=== PATIENT | female | born 1955 | race American Indian/Alaskan Native ===

== ENCOUNTER 2021-03-21 13:05 | Outpatient (CLI) | payer OTHER ==
--- NOTE | 2021-03-22 15:29 | Mammography Report ---
DIGITAL SCREENING MAMMOGRAM WITH CAD, 03/21/2021 CLINICAL INFORMATION / INDICATION: Routine screening mammography. SCREENING MAMMOGRAM TECHNIQUE: Digital bilateral 2D mammography was obtained in the craniocaudal and mediolateral obliqu e projections. This examination was interpreted with the benefit of Computer-Aided Detection analysis . COMPARISON: 11/27/2018 FINDINGS: Breast Density: There are scattered areas of fibroglandular density. No dominant mass, suspicious calcifications, or architectural distortion in either breast. IMPRESSION: No mammographic evidence of malignancy. Follow up recommendation: Routine yearly BI-RADS Category 1: Negative. A "normal" or negative report should not discourage follow up or biopsy of a clinically significant f inding. A written summary of these findings will be mailed to the patient. The patient will be entered into a mammography reporting system which will generate a reminder letter for the patient's next appointmen t at the appropriate interval. The [employer] recommends yearly mammograms starting at age 40 and continuing as l sukumar as a woman is in good health. Breast MRI is recommended for women with an approximate 20-25% or greater lifetime risk of breast cancer, including women with a strong family history of breast or ova cheng cancer or who have been treated for Hodgkin's disease. Signer Name: Toi Walker MD Signed: 03/22/2021 3:25 PM Workstation Name: [id number]
== END 2021-03-21 13:06 | disposition home or self-care (01) ==
LOC: MAMMO 13:05
PROVIDERS: ATTEND Pediatrics
DX: Z12.31 Encounter for screening mammogram for malignant neoplasm of breast (principal); N64.89 Other specified disorders of breast
CPT/HCPCS: 77067

== ENCOUNTER 2021-07-08 18:16 | Emergency (ER) | payer OTHER ==
--- NOTE | 2021-07-08 19:09 | Emergency Department Report ---
ED General Adult HPI - General Chief complaint: Chest Pain Stated complaint: CHEST PAIN PUI?: No Time Seen by Provider: 07/08/21 18:26 Source: patient, RN notes reviewed Mode of arrival: Ambulatory Limitations: No Limitations - History of Present Illness Initial comments: The patient was evaluated in the emergency department for symptoms described in the history of present illness. He/she was evaluated in the context of the global COVID-19 pandemic, which necessitated consideration that the patient might be at risk for infection with the virus that causes COVID-19. Institutional protocols and algorithms that pertain to the evaluation of patients at risk for COVID-19 are in a state of rapid change based on information released by regulatory bodies including the CDC and federal and state organizations. These policies and algorithms were followed during the patient's care in the emergency department. Please note that these policies, procedures and recommendations changed on a rapid basis. During the history and physical examination I am chaperoned by JULI SOOD The patient is a 66-year-old female with a history of sinus disease, and hypertension. She presents to the ER today with a complaint of intermittent central left-sided chest pain associate with left upper extremity numbness since May. It is getting worse. She reports that this episode started this morning, and resolve spontaneously. She then had another episode earlier on this evening. No recent travel, surgery, immobilization, leg pain or leg swelling, DVT/PE risk factors. No recent aspirin consumption. No recent cardiac risk ratification. She denies additional injuries and complaints at this time. -: Sudden Location: chest Radiation: extremity Quality: aching Consistency: intermittent Improves with: none Worsens with: none - Related Data Previous Rx's Medication Instructions Recorded Last Taken Type Aspirin 325 mg PO QDAY #30 tablet 07/08/21 Unknown Rx Nitroglycerin (Nf) [Nitrostat] 0.3 mg SL PRN PRN #30 tab 07/08/21 Unknown Rx Allergies Allergy/AdvReac Type Severity Reaction Status Date / Time No Known Allergies Allergy Unverified 07/08/21 18:24 ED Review of Systems ROS: Stated complaint: CHEST PAIN Other details as noted in HPI Constitutional: denies: fever Eyes: denies: eye discharge ENT: denies: epistaxis Respiratory: denies: wheezing Cardiovascular: chest pain Gastrointestinal: denies: abdominal pain Musculoskeletal: denies: back pain Neurological: denies: weakness Hematological/Lymphatic: denies: easy bleeding ED Past Medical Hx - Medications Home Medications: Home Medications Medication Instructions Recorded Confirmed Last Taken Type Aspirin 325 mg PO QDAY #30 tablet 07/08/21 Unknown Rx Nitroglycerin (Nf) [Nitrostat] 0.3 mg SL PRN PRN #30 tab 07/08/21 Unknown Rx ED Physical Exam - General Limitations: No Limitations General appearance: alert, in no apparent distress - Head Head exam: Present: atraumatic, normocephalic - Eye Eye exam: Present: normal appearance, EOMI. Absent: nystagmus - ENT ENT exam: Present: normal exam, normal orophraynx, mucous membranes moist, normal external ear exam - Neck Neck exam: Present: normal inspection, full ROM. Absent: tenderness, meningismus - Respiratory Respiratory exam: Present: normal lung sounds bilaterally. Absent: respiratory distress, wheezes, rales, rhonchi, stridor, decreased breath sounds - Cardiovascular Cardiovascular Exam: Present: regular rate, normal rhythm, normal heart sounds. Absent: bradycardia, tachycardia, irregular rhythm, systolic murmur, diastolic murmur, rubs, gallop - GI/Abdominal GI/Abdominal exam: Present: soft. Absent: distended, tenderness, guarding, rebound, rigid, pulsatile mass - Extremities Exam Extremities exam: Present: normal inspection, full ROM, other (2+ pulses noted in the bilateral upper and lower extremities. There is no palpable cord. negative Homans sign. Muscular compartments are soft. The pelvis is stable.). Absent: pedal edema, calf tenderness - Back Exam Back exam: Present: normal inspection, full ROM. Absent: tenderness, CVA tenderness (R), CVA tenderness (L), paraspinal tenderness, vertebral tenderness - Neurological Exam Neurological exam: Present: alert, oriented X3, normal gait, other (No facial droop. Tongue midline. Extraocular movements intact bilaterally. Facial sensation intact to light touch in V1, V2, V3 distribution bilaterally. 5 and a 5 strength in 4 extremities. Sensation intact to light touch in 4 extremities.). Absent: motor sensory deficit - Psychiatric Psychiatric exam: Present: normal affect, normal mood - Skin Skin exam: Present: warm, dry, intact, normal color. Absent: rash ED Medical Decision Making - EKG Data -: EKG Interpreted by Me EKG shows normal: sinus rhythm Rate: normal - EKG Data When compared to previous EKG there are: previous EKG unavailable 07/08/21 19:07 The EKG is interpreted at 18: 33 Sinus rhythm, rate 71 bpm. Normal axis, normal intervals, nonspecific T wave abnormalities V2 and V3. This is an abnormal EKG. This is not a STEMI. - Medical Decision Making Differential diagnosis, including without limited to: GERD, gastritis, hiatal hernia, pneumonia, acute coronary syndrome Assessment and plan: 66-year-old female, with chest pain. Her EKG is abnormal and nonspecific. Have recommended admission to the medical service with cardiac risk ratification, including labs, x-ray the chest, and cardiac monitoring, and administration of appropriate analgesia. The patient presents as awake, alert, oriented, sober of sound mind, and exhibits decision-making capacity. She indicated that she had "some things to take care of", and indicated that she would sign out AGAINST MEDICAL ADVICE and return when she took care of her obligations. The risks of leaving, including , disability, paralysis, loss of quality of life are discussed with the patient, who verbalizes understanding with her own words, and exhibits decision-making capacity. This conversation was witnessed by JULI SOOD The patient is advised to return to the emergency room right away if and when she changes her mind. The patient left without receiving her discharge paperwork Critical care attestation.: If time is entered above; I have spent that time in minutes in the direct care of this critically ill patient, excluding procedure time. ED Disposition Clinical Impression: Acute chest pain Disposition: LEFT AGAINST MEDICAL ADVICE Is pt being admited?: No Does the pt Need Aspirin: No Condition: Undetermined Instructions: Chest Pain (ED) Additional Instructions: As we discussed, you have left the hospital/emergency room AGAINST MEDICAL ADVICE. By leaving, you risked , disability, paralysis, permanent loss of quality of life. The ER is open 24 hours a day, 7 days a week. It never closes. Please return to the emergency room right away if and when you change your mind. If you decide not to return to the emergency room, please follow-up with the listed physician referrals as soon as possible. Referrals: [facility] [Provider Group] - [facility] [Provider Group] - [facility]
--- NOTE | 2021-07-10 13:17 | Electrocardiograph Report ---
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
== END 2021-07-08 18:30 | disposition left against medical advice (07) ==
LOC: ED 18:16
DX: R07.9 Chest pain, unspecified (principal)
CPT/HCPCS: 93005; 99282

== ENCOUNTER 2021-07-08 21:29 | Observation (INO) | payer OTHER ==
[2021-07-08] MEDS ORDERED: NITROGLYCERIN 0.4 MG TAB SUBL SL ONE ×2 (21:51→23:59)
[2021-07-08] MEDS ORDERED: ASPIRIN 81 MG TAB CHEW PO ONE ×2 (21:51→23:59)
[2021-07-08] MEDS ORDERED: PANTOPRAZOLE 40 MG INJ IV ONE ×2 (21:52→23:59)
--- NOTE | 2021-07-08 21:53 | Emergency Department Report ---
ED General Adult HPI - General Chief complaint: Chest Pain Stated complaint: CHEST PAIN PUI?: No Time Seen by Provider: 07/08/21 21:51 Source: patient, RN notes reviewed, old records reviewed Mode of arrival: Stretcher Limitations: No Limitations - History of Present Illness Initial comments: The patient was evaluated in the emergency department for symptoms described in the history of present illness. He/she was evaluated in the context of the global COVID-19 pandemic, which necessitated consideration that the patient migh t be at risk for infection with the virus that causes COVID-19. Institutional protocols and algorithms that pertain to the evaluation of patients at risk for COVID-19 are in a state of rapid change based on information released by regulatory bodies including the CDC and federal and state organizations. These policies and algorithms were followed during the patient's care in the emergency department. Please note that these policies, procedures and recommendations changed on a rapid basis. The patient is a 66-year-old female. I saw her earlier on today for chest pain. She signed out AGAINST MEDICAL ADVICE to take care of some obligations at home. She now presents to the ER today with a request for admission for cardiac or stratification. Please see her previous chart. The patient denies DVT/PE risk factors. She is still having a bit of pain. -: Gradual Location: chest - Related Data Previous Rx's Medication Instructions Recorded Last Taken Type Aspirin 325 mg PO QDAY #30 tablet 07/08/21 Unknown Rx Nitroglycerin (Nf) [Nitrostat] 0.3 mg SL PRN PRN #30 tab 07/08/21 Unknown Rx Allergies Allergy/AdvReac Type Severity Reaction Status Date / Time No Known Allergies Allergy Unverified 07/08/21 18:24 ED Review of Systems ROS: Stated complaint: CHEST PAIN Other details as noted in HPI Constitutional: denies: fever Eyes: denies: eye discharge ENT: denies: epistaxis Respiratory: denies: cough Cardiovascular: chest pain Gastrointestinal: denies: abdominal pain Neurological: denies: weakness Hematological/Lymphatic: denies: easy bleeding ED Past Medical Hx - Medications Home Medications: Home Medications Medication Instructions Recorded Confirmed Last Taken Type Aspirin 325 mg PO QDAY #30 tablet 07/08/21 Unknown Rx Nitroglycerin (Nf) [Nitrostat] 0.3 mg SL PRN PRN #30 tab 07/08/21 Unknown Rx ED Physical Exam - General Limitations: No Limitations General appearance: alert, in no apparent distress - Head Head exam: Present: atraumatic, normocephalic - Eye Eye exam: Present: normal appearance, EOMI. Absent: nystagmus - ENT ENT exam: Present: normal exam, normal orophraynx, mucous membranes moist, normal external ear exam - Neck Neck exam: Present: normal inspection, full ROM. Absent: tenderness, meningismus - Respiratory Respiratory exam: Absent: stridor - Extremities Exam Extremities exam: Present: normal inspection, full ROM - Back Exam Back exam: Present: normal inspection, full ROM - Neurological Exam Neurological exam: Present: alert, oriented X3, normal gait, other (No facial droop. Tongue midline. Extraocular movements intact bilaterally. Facial sensation intact to light touch in V1, V2, V3 distribution bilaterally. 5 and a 5 strength in 4 extremities. Sensation intact to light touch in 4 extremities.) - Psychiatric Psychiatric exam: Present: normal affect, normal mood - Skin Skin exam: Present: warm, dry, intact, normal color. Absent: rash ED Course Vital Signs 07/08/21 23:18 Temperature 98 F Pulse Rate 63 Respiratory 18 Rate Blood Pressure 130/72 O2 Sat by Pulse 100 Oximetry - Reevaluation(s) Reevaluation #1: 07/08/21 22:35 Differential diagnosis, including but not limited to: GERD, gastritis, hiatal hernia, pneumonia, costochondritis, acute coronary syndrome Assessment and plan: 66-year-old female, who denies DVT and pulmonary embolism risk factors, who is low risk by Wells criteria for pulmonary embolism, who is not tachycardic, tachypneic or hypoxic, with no mediastinal shift or widening, normal pulses in upper lower extremities, no pulsatile abdominal mass, with acute chest pain, this is very unlikely to be aortic disease. Patient moderate risk for major adverse cardiac event as per heart score. Patient is agreeable to admission and hospitalization for cardiac risk ratification. X-ray the chest to my interpretation is unremarkable. Appropriate laboratory studies ordered. Hospital physician will be contacted to arrange admission once initial diagnostics have resulted. Patient is agreeable to this plan of care. 07/08/21 23:44 Dr Swanson to admit to [facility] Laboratory studies reviewed and appreciated. Patient has mild hypokalemia. Potassium supplementation ordered Discussed results with patient She articulates understanding ED Medical Decision Making - Lab Data Result diagrams: 07/08/21 22:29 07/08/21 22:29 Lab Results 07/08/21 Range/Units 22:29 WBC 5.6 (4.5-11.0) K/mm3 RBC 4.93 (3.65-5.03) M/mm3 Hgb 13.4 (10.1-14.3) gm/dl Hct 40.3 (30.3-42.9) % MCV 82 (79-97) fl MCH 27 L (28-32) pg MCHC 33 (30-34) % RDW 13.6 (13.2-15.2) % Plt Count 399 (140-440) K/mm3 Lymph % (Auto) 42.0 H (13.4-35.0) % [place] % (Auto) 7.4 H (0.0-7.3) % Eos % (Auto) 2.4 (0.0-4.3) % Baso % (Auto) 0.6 (0.0-1.8) % Lymph # (Auto) 2.3 (1.2-5.4) K/mm3 [place] # (Auto) 0.4 (0.0-0.8) K/mm3 Eos # (Auto) 0.1 (0.0-0.4) K/mm3 Baso # (Auto) 0.0 (0.0-0.1) K/mm3 Seg Neutrophils % 47.6 (40.0-70.0) % Seg Neutrophils # 2.7 (1.8-7.7) K/mm3 Lab Results 07/08/21 07/08/21 07/08/21 Range/Units 22:29 22:29 22:29 WBC 5.6 (4.5-11.0) K/mm3 RBC 4.93 (3.65-5.03) M/mm3 Hgb 13.4 (10.1-14.3) gm/dl Hct 40.3 (30.3-42.9) % MCV 82 (79-97) fl MCH 27 L (28-32) pg MCHC 33 (30-34) % RDW 13.6 (13.2-15.2) % Plt Count 399 (140-440) K/mm3 Lymph % (Auto) 42.0 H (13.4-35.0) % [place] % (Auto) 7.4 H (0.0-7.3) % Eos % (Auto) 2.4 (0.0-4.3) % Baso % (Auto) 0.6 (0.0-1.8) % Lymph # (Auto) 2.3 (1.2-5.4) K/mm3 [place] # (Auto) 0.4 (0.0-0.8) K/mm3 Eos # (Auto) 0.1 (0.0-0.4) K/mm3 Baso # (Auto) 0.0 (0.0-0.1) K/mm3 Seg Neutrophils % 47.6 (40.0-70.0) % Seg Neutrophils # 2.7 (1.8-7.7) K/mm3 PT 12.2 (12.2-14.9) Sec. INR 0.81 L (0.87-1.13) Sodium 143 (137-145) mmol/L Potassium 3.0 L (3.6-5.0) mmol/L Chloride 101.7 (98-107) mmol/L Carbon Dioxide 29 (22-30) mmol/L Anion Gap 15 mmol/L BUN 10 (7-17) mg/dL Creatinine 0.7 (0.6-1.2) mg/dL Estimated GFR > 60 ml/min BUN/Creatinine Ratio 14 % Glucose 99 (65-100) mg/dL Calcium 9.4 (8.4-10.2) mg/dL Troponin T < 0.010 (0.00-0.029) ng/mL Vital Signs 07/08/21 23:18 Temperature 98 F Pulse Rate 63 Respiratory 18 Rate Blood Pressure 130/72 O2 Sat by Pulse 100 Oximetry - EKG Data -: EKG Interpreted by Me EKG shows normal: sinus rhythm - EKG Data Interpretation: unchanged when compared t 07/08/21 22:34 The EKG today is interpreted at 22: 03 Sinus rhythm, rate 64 bpm. Normal axis, normal intervals, nonspecific T wave abnormalities. Minimal motion artifact. Abnormal EKG. Not a STEMI. Unchanged from prior EKG. - Radiology Data Radiology results: report reviewed, image reviewed interpreted by me: 2 view x-ray of the chest, interpreted by myself, demonstrates clear lungs, no infiltrate, no pneumothorax, uncoiled aorta CHEST 2 VIEWS INDICATION / CLINICAL INFORMATION: Chest Pain. COMPARISON: None available. FINDINGS: SUPPORT DEVICES: None. HEART / MEDIASTINUM: No significant abnormality. LUNGS / PLEURA: No significant pulmonary or pleural abnormality. No pneumothorax. ADDITIONAL FINDINGS: No significant additional findings. IMPRESSION: 1. No active cardiopulmonary disease. Signer Name: Marino Lei II, MD Signed: 07/08/2021 9:28 PM Workstation Name: [id number] Critical care attestation.: If time is entered above; I have spent that time in minutes in the direct care of this critically ill patient, excluding procedure time. ED Disposition Clinical Impression: Acute chest pain, Hypokalemia Disposition: ADMITTED INPATIENT Is pt being admited?: Yes Does the pt Need Aspirin: No Condition: Good Instructions: Chest Pain (ED) Referrals: YAQUELIN CAMPBELL APRN-BC [Primary Care Provider] - 3-5 Days Heart Score - HEART Score History: Moderately suspicious EKG: Non-specific Age: > 65 Risk factors: 1-2 risk factors Troponin: < normal limit HEART Score: 5 - EKG Read Time Time EKG Completed: 22:03 EKG Read Time: 22:03 - Critical Actions Critical Actions: 4-6 pts:12-16.6% risk of adverse cardiac event. Should be admitted
--- NOTE | 2021-07-08 22:32 | XRay Report ---
CHEST 2 VIEWS INDICATION / CLINICAL INFORMATION: Chest Pain. COMPARISON: None available. FINDINGS: SUPPORT DEVICES: None. HEART / MEDIASTINUM: No significant abnormality. LUNGS / PLEURA: No significant pulmonary or pleural abnormality. No pneumothorax. ADDITIONAL FINDINGS: No significant additional findings. IMPRESSION: 1. No active cardiopulmonary disease. Signer Name: Marino Lei II, MD Signed: 07/08/2021 10:28 PM Workstation Name: [id number]
[2021-07-08 22:59] LABS: Basophils % (Auto) 0.6 % (0.0-1.8); Eosinophils # (Auto) 0.1 K/mm3 (0.0-0.4); Eosinophils % (Auto) 2.4 % (0.0-4.3); Hematocrit 40.3 % (30.3-42.9); Hemoglobin 13.4 gm/dl (10.1-14.3); Lymphocytes # (Auto) 2.3 K/mm3 (1.2-5.4); Mean Corpuscular HGB Conc 33 % (30-34); Mean Corpuscular Volume 82 fl (79-97); Monocytes # (Auto) 0.4 K/mm3 (0.0-0.8); Monocytes % (Auto) 7.4 % (0.0-7.3); Platelet Count 399 K/mm3 (140-440); Red Blood Count 4.93 M/mm3 (3.65-5.03); Red Cell Distribution Width 13.6 % (13.2-15.2)
[2021-07-08 23:13] LABS: INR 0.81 (0.87-1.13)
[2021-07-08 23:17] LABS: Blood Urea Nitrogen 10 mg/dL (7-17); Calcium 9.4 mg/dL (8.4-10.2); Hemolysis Index 4
[2021-07-08 23:22] LABS: BUN/Creatinine Ratio 14
[2021-07-08] MEDS ORDERED: POTASSIUM CHLORIDE ER 20 MEQ TAB PO ONE (23:31)
[2021-07-08] MEDS ORDERED: MAGNESIUM OXIDE 400 MG TAB PO STA (23:31)
[2021-07-09] MEDS ORDERED: MORPHINE 4 MG/1 ML INJ IV PRN (01:21)
[2021-07-09] MEDS ORDERED: ACETAMINOPHEN 325 MG TAB PO PRN (01:21)
[2021-07-09] MEDS ORDERED: NITROGLYCERIN 0.4 MG TAB SUBL SL PRN (01:21)
[2021-07-09] MEDS ORDERED: traMADol 50 MG TAB PO PRN (01:21)
--- NOTE | 2021-07-09 01:29 | History and Physical Report ---
History of Present Illness Date of examination: 07/09/21 Date of admission: 07/09/21 Chief complaint: Chest pain History of present illness: 66-year-old female with a history of sinus disease, and hypertension was brought to the emergency room because of intermittent central left-sided chest pain associate with left upper extremity numbness since May. It is getting worse. As per the patient chest pain started this morning, and resolve spontaneously. She then had another episode earlier on this evening. In the emergency room initial cardiac enzyme is negative troponin is 0.010 and potassium 3.0's were going to admit the patient we will put the patient on chest pain pathway we do the serial cardiac enzymes we will also do a Lexiscan Past History Past Medical History: hyperlipidemia, other (Sinus disease) Social history: other (No smoking) Medications and Allergies Allergies Allergy/AdvReac Type Severity Reaction Status Date / Time No Known Allergies Allergy Verified 07/08/21 23:56 Home Medications Medication Instructions Recorded Confirmed Last Taken Type Aspirin 325 mg PO QDAY #30 tablet 07/08/21 Unknown Rx Nitroglycerin (Nf) [Nitrostat] 0.3 mg SL PRN PRN #30 tab 07/08/21 Unknown Rx Active Meds: Active Medications Nitroglycerin (Nitroglycerin 0.4 Mg Tab Subl) 0.4 mg SL Q5M ONE Stop: 07/08/21 23:59 Review of Systems Cardiovascular: chest pain, shortness of breath Exam - Constitutional Vitals: Temp Pulse Resp BP Pulse Ox 98 F 86 16 115/54 98 07/08/21 23:18 07/09/21 00:35 07/09/21 00:35 07/09/21 00:35 07/09/21 00:37 General appearance: Present: no acute distress, well-nourished - EENT Eyes: Present: PERRL ENT: hearing intact, clear oral mucosa - Neck Neck: Present: supple, normal ROM - Respiratory Respiratory effort: normal Respiratory: bilateral: diminished - Cardiovascular Heart Sounds: Present: S1 & S2. Absent: rub, click - Extremities Extremities: pulses symmetrical, No edema Peripheral Pulses: within normal limits - Abdominal General gastrointestinal: Present: soft, non-tender, non-distended, normal bowel sounds Female genitourinary: Present: normal - Integumentary Integumentary: Present: clear, warm, dry - Musculoskeletal Musculoskeletal: gait normal, strength equal bilaterally - Psychiatric Psychiatric: appropriate mood/affect, intact judgment & insight - Neurologic Neurologic: CNII-XII intact, moves all extremities HEART Score - HEART Score EKG: Non-specific Age: > 65 Risk factors: 1-2 risk factors Troponin: Troponin T < 0.010 ng/mL (0.00-0.029) 07/09/21 00:40 Troponin: < normal limit - Critical Actions Critical Actions: 4-6 pts:12-16.6% risk of adverse cardiac event. Should be admitted Results - Labs CBC & Chem 7: 07/08/21 22:29 07/08/21: Labs: Laboratory Last Values WBC 5.6 K/mm3 (4.5-11.0) 07/08/21: RBC 4.93 M/mm3 (3.65-5.03) 07/08/21: Hgb 13.4 gm/dl (10.1-14.3) 07/08/21: Hct 40.3 % (30.3-42.9) 07/08/21: MCV 82 fl (79-97) 07/08/21: MCH 27 pg (28-32) L 07/08/21: MCHC 33 % (30-34) 07/08/21: RDW 13.6 % (13.2-15.2) 07/08/21: Plt Count 399 K/mm3 (140-440) 07/08/21: Lymph % (Auto) 42.0 % (13.4-35.0) H 07/08/21: [place] % (Auto) 7.4 % (0.0-7.3) H 07/08/21: Eos % (Auto) 2.4 % (0.0-4.3) 07/08/21: Baso % (Auto) 0.6 % (0.0-1.8) 07/08/21: Lymph # (Auto) 2.3 K/mm3 (1.2-5.4) 07/08/21: [place] # (Auto) 0.4 K/mm3 (0.0-0.8) 07/08/21 Eos # (Auto) 0.1 K/mm3 (0.0-0.4) 07/08/21 22:29 Baso # (Auto) 0.0 K/mm3 (0.0-0.1) 07/08/21 22:29 Seg Neutrophils % 47.6 % (40.0-70.0) 07/08/21 22:29 Seg Neutrophils # 2.7 K/mm3 (1.8-7.7) 07/08/21: PT 12.2 Sec. (12.2-14.9) 07/08/21 22:29 INR 0.81 (0.87-1.13) L 07/08/21 22:29 Sodium 143 mmol/L (137-145) 07/08/21: Potassium 3.0 mmol/L (3.6-5.0) L 07/08/21: Chloride 101.7 mmol/L (98-107) 07/08/21 22: Carbon Dioxide 29 mmol/L (22-30) 07/08/21: Anion Gap 15 mmol/L 07/08/21: BUN 10 mg/dL (7-17) 07/08/21: Creatinine 0.7 mg/dL (0.6-1.2) 07/08/21: Estimated GFR > 60 ml/min 07/08/21: BUN/Creatinine Ratio 14 % 07/08/21 22: Glucose 99 mg/dL (65-100) 07/08/21 22: Calcium 9.4 mg/dL (8.4-10.2) 07/08/21: Magnesium 1.90 mg/dL (1.7-2.3) 07/09/21 00:40 Troponin T < 0.010 ng/mL (0.00-0.029) 07/09/21 00:40 - Imaging and Cardiology Chest x-ray: report reviewed Assessment and Plan VTE prophylaxis?: Chemical Plan of care discussed with patient/family: Yes - Patient Problems (1) ACS (acute coronary syndrome) Current Visit: Yes Status: Acute Plan to address problem: Admit the patient to the medical telemetry. NPO. Normal saline at the rate of 100 cc/h. Aspirin 325 mg p.o. daily. Lipitor 40 mg p.o. daily. Nitroglycerin as needed. Serial cardiac enzymes. Lexiscan. Consult cardiology if needed (2) Hypertension Current Visit: Yes Status: Acute Plan to address problem: Hydralazine 10 mg IV every 6 hours as needed. we continue the home medication (3) Sinus disease Current Visit: Yes Status: Acute Plan to address problem: Stable. Outpatient follow-up with ENT (4) Hypokalemia Current Visit: Yes Status: Acute Plan to address problem: Potassium is supplemented. We will recheck the BMP in the morning (5) DVT prophylaxis Current Visit: Yes Status: Acute Plan to address problem: Heparin 5000 units subcu every 8 hours for DVT prophylaxis. Protonix 40 mg p.o. daily for GI prophylaxis. Patient is a full code
[2021-07-09] MEDS ORDERED: SODIUM CHLORIDE 0.9% 1000 ML 1,000 ML IV SCH (01:30)
[2021-07-09 04:48] LABS: Basophils # (Auto) 0.1 K/mm3 (0.0-0.1); Basophils % (Auto) 1.2 % (0.0-1.8); Eosinophils # (Auto) 0.2 K/mm3 (0.0-0.4); Lymphocytes # (Auto) 2.2 K/mm3 (1.2-5.4); Mean Corpuscular HGB Conc 33 % (30-34); Mean Corpuscular Volume 83 fl (79-97); Monocytes # (Auto) 0.4 K/mm3 (0.0-0.8); Monocytes % (Auto) 8.8 % (0.0-7.3); Platelet Count 351 K/mm3 (140-440); Red Blood Count 4.36 M/mm3 (3.65-5.03); Red Cell Distribution Width 13.9 % (13.2-15.2)
[2021-07-09 04:53] LABS: BUN/Creatinine Ratio 14; Blood Urea Nitrogen 11 mg/dL (7-17); Calcium 8.5 mg/dL (8.4-10.2); Hemolysis Index 5
[2021-07-09] MEDS ORDERED: HEPARIN 5,000 UNIT/1 ML VIAL SUB-Q SCH (06:00)
[2021-07-09] MEDS ORDERED: REGADENOSON 0.4 MG/5 ML INJ IV ONE ×2 (07:39→07:45)
[2021-07-09] MEDS ORDERED: POTASSIUM CHLORIDE ER 20 MEQ TAB PO NR (08:10)
[2021-07-09] MEDS ORDERED: PANTOPRAZOLE 40 MG TAB PO NR (08:30)
[2021-07-09] MEDS ORDERED: PANTOPRAZOLE 40 MG TAB PO SCH (10:00)
--- NOTE | 2021-07-09 10:35 | Consultation ---
History of Present Illness Consult date: 07/09/21 Requesting physician: FRANCESCA CARTER Consult reason: chest pain History of present illness: Patient is a 66-year-old female who reports she has a past medical history of hypertension, HLD, and chronic sinus infections who came to the ED yesterday for complaint of chest pain associated with bilateral extremity numbness that started 1 day prior to admission. Patient reports that she has had intermittent chest pain since early May. She describes this pain as tightness and locates it substernally. Reports that the pain is worse when she is stressed at work but that it does come intermittently. She states that she came to the hospital yesterday because the pain was worse than it had previously been she rated at 7 out of 10, she developed bilateral upper extremity numbness, and reports nausea and vomiting associated with yesterday's pain. She states she had not had the symptoms previously. At time of interview patient states that she was no longer having the pain and that her other symptoms have subsided. Patient denies shortness of breath, palpitations, lightheadedness, or diaphor esis. Patient is previously unknown to our practice. Cardiology is consulted for chest pain. Past History Past Medical History: hyperlipidemia, other (Sinus disease) Past Surgical History: No surgical history Social history: other (No smoking) Family history: cancer Medications and Allergies Allergies Allergy/AdvReac Type Severity Reaction Status Date / Time No Known Allergies Allergy Verified 07/08/21 23:56 Home Medications Medication Instructions Recorded Confirmed Last Taken Type Nitroglycerin (Nf) [Nitrostat] 0.3 mg SL PRN PRN #30 tab 07/08/21 Unknown Rx Aspirin EC [Halfprin EC] 81 mg PO QDAY #30 tablet 07/09/21 Unknown Rx Active Meds: Active Medications Acetaminophen (Acetaminophen 325 Mg Tab) 650 mg PO Q6H PRN PRN Reason: Pain, Mild (1-3) Aspirin (Aspirin Ec 81 Mg Tab) 81 mg PO QDAY FORETS Atorvastatin Calcium (Atorvastatin 40 Mg Tab) 40 mg PO QHS FOREST Heparin Sodium (Porcine) (Heparin 5,000 Unit/1 Ml Vial) 5,000 unit SUB-Q Q8HR FOREST Sodium Chloride (Nacl 0.9% 1000 Ml) 1,000 mls @ 100 mls/hr IV DIRECT FOREST Morphine Sulfate (Morphine 4 Mg/1 Ml Inj) 2 mg IV Q5MIN PRN PRN Reason: Chest Pain unrelieved by NTG Nitroglycerin (Nitroglycerin 0.4 Mg Tab Subl) 0.4 mg SL Q5M PRN PRN Reason: Chest Pain Sodium Chloride (Sodium Chloride 0.9% 10 Ml Flush Syringe) 10 ml IV PRN PRN PRN Reason: LINE FLUSH Tramadol HCl (Tramadol 50 Mg Tab) 50 mg PO Q6H PRN PRN Reason: Pain, Moderate (4-6) Review of Systems Constitutional: no weight loss, no weight gain, no fever, no chills Ears, nose, mouth and throat: nasal congestion, no sinus pain Cardiovascular: chest pain, no orthopnea, no palpitations, no rapid/irregular heart beat, no edema, no syncope, no shortness of breath, no dyspnea on exertion Respiratory: no cough, no shortness of breath, no dyspnea on exertion Gastrointestinal: nausea, vomiting, no abdominal pain, no diarrhea Musculoskeletal: no neck stiffness, no neck pain Integumentary: no rash, no pruritis, no redness Neurological: numbness (Bilateral upper extremities) Psychiatric: no anxiety, no memory loss Endocrine: no cold intolerance, no heat intolerance Physical Examination Vital Signs Temp Pulse Resp BP Pulse Ox 98 F 63 18 130/72 100 07/08/21 23:18 07/08/21 23:18 07/08/21 23:18 07/08/21 23:18 07/08/21 23:18 General appearance: no acute distress HEENT: Positive: PERRL Neck: Positive: trachea midline Cardiac: Positive: Reg Rate and Rhythm Lungs: Positive: Normal Breath Sounds Neuro: Positive: Grossly Intact Abdomen: Positive: Soft Skin: Negative: Rash, Suspicious Lesions, Ulceration Extremities: Present: upper extr. pulses. Absent: edema Results 07/09/21 04:18 07/09/21 04:18 Coagulation 07/08/21 Range/Units 22:29 PT 12.2 (12.2-14.9) Sec. INR 0.81 L (0.87-1.13) CBC 07/08/21 07/09/21 Range/Units 22:29 04:18 WBC 5.6 5.1 (4.5-11.0) K/mm3 RBC 4.93 4.36 (3.65-5.03) M/mm3 Hgb 13.4 12.0 (10.1-14.3) gm/dl Hct 40.3 36.0 (30.3-42.9) % Plt Count 399 351 (140-440) K/mm3 Lymph # (Auto) 2.3 2.2 (1.2-5.4) K/mm3 Boyd # (Auto) 0.4 0.4 (0.0-0.8) K/mm3 Eos # (Auto) 0.1 0.2 (0.0-0.4) K/mm3 Baso # (Auto) 0.0 0.1 (0.0-0.1) K/mm3 Comprehensive Metabolic Panel 07/08/21 07/09/21 Range/Units 22:29 04:18 Sodium 143 141 (137-145) mmol/L Potassium 3.0 L 3.4 L (3.6-5.0) mmol/L Chloride 101.7 102.5 (98-107) mmol/L Carbon Dioxide 29 27 (22-30) mmol/L BUN 10 11 (7-17) mg/dL Creatinine 0.7 0.8 (0.6-1.2) mg/dL Glucose 99 103 H (65-100) mg/dL Calcium 9.4 8.5 (8.4-10.2) mg/dL - Imaging and Cardiology Echo: pending EKG interpretations - Telemetry EKG Rhythm: Sinus Rhythm - EKG Sinus rhythms and dysrhythmias: sinus rhythm Repolarization changes or abnormalities: nonspecific abnormality, ST segment, and/or T wave Assessment and Plan Patient is a 66-year-old female who reports she has a past medical history of hypertension and chronic sinus infections who came to the ED yesterday for complaint of chest pain associated with bilateral extremity numbness that started 1 day prior to admission. Atypical chest pain Bilateral upper extremity numbness HTN Hypokalemia HLD Preliminary Echo report 07/09/2021- Normal echo with normal LV function Lexiscan MPI stress test 07/09/2021: Negative for signs of ischemia Outpatient medications: amlodipine p.o. daily and quinapril hydrochlorothiazide 20-12.5 mg p.o. daily Plan: EKG shows sinus rhythm 64 with nonspecific T abnormalities. Troponins negative x4. Patient currently chest pain-free. AMI ruled out Resume outpatient medications amlodipine 5 mg p.o. daily ginrfdmepsaxrnrjdzk37.5 mg p.o. daily. No quinapril on formulary will use lisinopril 10 mg p.o. daily Replace potassium Patient had negative echo and stress test today Cardiac Status stable for discharge Patient seen in conjunction with Dr. West who agrees with this plan of care - Patient Problems (1) Atypical chest pain Current Visit: Yes Status: Acute (2) Hypertension Current Visit: Yes Status: Acute (3) Hypokalemia Current Visit: Yes Status: Acute (4) Sinus disease Current Visit: Yes Status: Acute
--- NOTE | 2021-07-09 11:09 | Discharge Summary ---
Providers - Providers Date of Admission: 07/09/21 01:22 Date of discharge: 07/09/21 Attending physician: FRANCESCA CARTER MD 07/09/21 Consult to Cardiac Rehabilitation [CONS] Routine Reason For Exam: Phase I 07/09/21 08:09 Consult to Physician [CONS] Routine Comment: Consulting Provider: JUSTIN FLOYD Physician Instructions: Reason For Exam: Chest pain workup Primary care physician: YAQUELIN CAMPBELL Hospitalization Reason for admission: Atypical chest pain Condition: Good Pertinent studies: Reviewed. Procedures: None. Hospital course: Patient is a 66-year-old female past medical history of hypertension, hyperlipidemia, and chronic sinus infections who presented to the ED with complaints of chest pain associated with bilateral extremity numbness that acutely worsened over the last 24 hours. The patient admits to having intermittent chest pain since last year. She associates it with increased stress at work. In the ED the patient was found to be hemodynamically stable, and it was recommended that the patient stay for admission. However, the patient left AMA due to family obligations. The the patient presented later in the day and was ready for hospital admission. She was found to have negative troponins x3. Cardiology was consulted for further management. Based on conversations with cardiology, the patient appears to be having atypical chest pain. The patient will continue with medical management and will follow up with her primary care provider. Patient is medically cleared for discharge. Patient expresses understanding. Disposition: 01 HOME / SELF CARE / HOMELESS Final Discharge Diagnosis (Prints w/discharge instructions): Atypical chest pain, hypokalemia, hypertension, hyperlipidemia chronic sinus infection Time spent for discharge: 45 min Core Measure Documentation - Palliative Care Palliative Care/ Comfort Measures: Not Applicable - Core Measures Any of the following diagnoses?: none Exam - Constitutional Vitals: Temp Pulse Resp BP Pulse Ox 98 F 66 13 156/73 99 07/08/21 23:18 07/09/21 08:31 07/09/21 08:31 07/09/21 09:55 07/09/21 08:31 General appearance: Present: no acute distress, well-nourished, obese - EENT Eyes: Present: PERRL, EOM intact ENT: hearing intact, clear oral mucosa, dentition normal - Neck Neck: Present: supple, normal ROM - Respiratory Respiratory effort: normal Respiratory: bilateral: CTA - Cardiovascular Rhythm: regular Heart Sounds: Present: S1 & S2 - Extremities Extremities: no ischemia, pulses intact, pulses symmetrical, No edema, normal temperature, normal color, Full ROM Peripheral Pulses: within normal limits - Abdominal General gastrointestinal: Present: soft, non-tender, non-distended, normal bowel sounds Female genitourinary: Present: deferred - Rectal Rectal Exam: deferred - Integumentary Integumentary: Present: clear, warm, dry - Musculoskeletal Musculoskeletal: strength equal bilaterally - Psychiatric Psychiatric: appropriate mood/affect, intact judgment & insight, memory intact, cooperative - Neurologic Neurologic: CNII-XII intact, moves all extremities - Allied Health Allied health notes reviewed: nursing Plan Activity: no restrictions Diet: low salt Additional Instructions: Patient is a 66-year-old female past medical history of hypertension, hyperlipidemia, and chronic sinus infections who presented to the ED with complaints of chest pain associated with bilateral extremity numbness that acutely worsened over the last 24 hours. The patient admits to having intermittent chest pain since last year. She associates it with increased stress at work. In the ED the patient was found to be hemodynamically stable, and it was recommended that the patient stay for admission. However, the patient left AMA due to family obligations. The the patient presented later in the day and was ready for hospital admission. She was found to have negative troponins x3. Cardiology was consulted for further management. Based on conversations with cardiology, the patient appears to be having atypical chest pain. The patient will continue with medical management and will follow up with her primary care provider. Patient is medically cleared for discharge. Patient expresses understanding. Care Plan Goals: Medically cleared for discharge. Assessment: Patient is a 66-year-old female past medical history of hypertension, hyperlipidemia, and chronic sinus infections who presented to the ED with complaints of chest pain associated with bilateral extremity numbness that acutely worsened over the last 24 hours. The patient admits to having intermittent chest pain since last year. She associates it with increased stress at work. In the ED the patient was found to be hemodynamically stable, and it was recommended that the patient stay for admission. However, the patient left AMA due to family obligations. The the patient presented later in the day and was ready for hospital admission. She was found to have negative troponins x3. Cardiology was consulted for further management. Based on conversations with cardiology, the patient appears to be having atypical chest pain. The patient will continue with medical management and will follow up with her primary care provider. Patient is medically cleared for discharge. Patient expresses understanding. Follow up with: YAQUELIN CAMPBELL APRN-BC [Primary Care Provider] - 3-5 Days Forms: Work/School Release Form Prescriptions: Aspirin EC [Halfprin EC] 81 mg PO QDAY #30 tablet
[2021-07-09] MEDS ORDERED: hydroCHLOROthiazide 12.5 MG CAP PO SCH (12:00)
[2021-07-09] MEDS ORDERED: LISINOPRIL 10 MG TAB PO SCH (12:00)
[2021-07-09] MEDS ORDERED: amLODIPine 5 MG TAB PO SCH (12:00)
[2021-07-09 17:44] VITALS: BP 141/60
--- NOTE | 2021-07-09 23:52 | Nuclear Medicine Report ---
APPROVED REPORT Exam: Nuclear Stress Test Indication: Chest pain Patient Location: ED-[facility] Room #: 24 Ht: 5 ft 5 in Wt: 185 lbs BSA: 1.91 m2 HR: 59 bpmBP: 149/64 mmHgBMI: 30.78 Rhythm: SINUS RHYTHM Stress Test Details Stress Test: Pharmacologic stress testing performed using 0.4 mg of regadenoson per 5 mL given IV over 10 seconds. Reason for pharmacologic stress test: physical limitation. HR Resting HR: 59 bpm Max HR Achieved: 93 bpm Max Heart Rate (APMHR): 153.017076 bpm Target HR (85% APMHR): 130.517422 bpm % of APMHR: 60.78 Recovery HR: 71 bpm BP Resting BP: 149/64 mmHg Max BP: 176/82 mmHg Recovery BP: 156/73 mmHg ECG Resting ECG: Sinus Rhythm Stress ECG: Sinus Rhythm Clinical Reason for Termination: Completed protocol Stress Symptoms: None NM EXAM: Myocardial Perfusion REST/STRESS Imaging Protocol: Rest Tc-99m/Stress Tc-99m 1 day Resting Data Rest SPECT myocardial perfusion imaging was performed in supine position 45 minutes following the intravenous injection of 10 mCi of Tc-99m Myoview. Time of rest injection: 0745 Pharmacologic Stress Pharmacologic stress test was performed by injecting Regadenoson 0.4 mg IV push followed by the intravenous injection of 28 mCi of Tc-99m Myoview. Time of stress injection: 0953 Gated Stress SPECT was performed 30 minutes after stress injection. The images were gated to evaluate regional wall motion and calculate left ventricular ejection fraction. Study Data TID = 1.13. Perfusion Nuclear Conclusion ECG Findings: negative for ischemia Clinical Findings: negative for ischemia Nuclear Findings: negative for ischemia Exercise Capacity: not assessed Left Ventricular Function: normal Risk Study: low Normal study. No scintigraphic evidence for myocardial ischemia or scar. Normal left ventricular size and function with no regional wall motion abnormalities.
[2021-07-10] MEDS ORDERED: ASPIRIN EC 325 MG TAB PO SCH ×2 (10:00)
[2021-07-10] MEDS ORDERED: ASPIRIN EC 81 MG TAB PO SCH (10:00)
--- NOTE | 2021-07-10 13:17 | Electrocardiograph Report ---
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
== END 2021-07-09 18:31 | disposition home or self-care (01) ==
LOC: ED 21:29 → INTOOBSV 07-09 01:22 → 4A 07-09 01:22
PROVIDERS: ADMIT Hospitalist; ATTEND Student in an Organized Health Care Education/Training Program
DX: I24.9 Acute ischemic heart disease, unspecified (principal); I10 Essential (primary) hypertension; R07.89 Other chest pain; E87.6 Hypokalemia; J32.9 Chronic sinusitis, unspecified; E78.5 Hyperlipidemia, unspecified; Z79.82 Long term (current) use of aspirin
CPT/HCPCS: 36415; 71046; 78452; 80048; 83735; 84484; 85025; 85610; 93005; 93010; 93017; 96374; 99285; A9502; C8929; C9113; G0378; J2785; 93306

== ENCOUNTER 2021-09-26 13:48 | Emergency (ER) | payer OTHER, MEDICARE ==
[2021-09-26] MEDS ORDERED: ONDANSETRON 4 MG ODT TAB PO ONE (16:37)
[2021-09-26] MEDS ORDERED: DICYCLOMINE 20 MG/2 ML INJ IM ONE (16:37)
[2021-09-26 16:59] LABS: Hematocrit 38.8 % (30.3-42.9); Hemoglobin 13.7 gm/dl (10.1-14.3); Mean Corpuscular HGB Conc 35 % (30-34); Mean Corpuscular Volume 80 fl (79-97); Platelet Count 388 K/mm3 (140-440); Red Blood Count 4.82 M/mm3 (3.65-5.03); Red Cell Distribution Width 13.3 % (13.2-15.2)
[2021-09-26 17:16] LABS: Alanine Aminotransferase 20 units/L (7-56); Albumin 4.6 g/dL (3.9-5); BUN/Creatinine Ratio 19; Blood Urea Nitrogen 15 mg/dL (7-17); Calcium 10.3 mg/dL (8.4-10.2); Hemolysis Index 6
[2021-09-26 17:48] LABS: Bilirubin,Urine NEG (Negative); Blood,Urine MOD (Negative); Color,Urine Yellow (Yellow); Hyaline Casts,Urine 1 /LPF; Mucus,Urine FEW /HPF; Protein,Urine <15 mg/dL mg/dL (Negative); Urobilinogen,Urine < 2.0 mg/dL (<2.0)
[2021-09-26] MEDS ORDERED: POTASSIUM CHLORIDE ER 20 MEQ TAB PO ONE (19:20)
[2021-09-26] MEDS ORDERED: MORPHINE 4 MG/1 ML INJ IV ONE (19:21)
[2021-09-26] MEDS ORDERED: ONDANSETRON 4 MG/2 ML INJ IV ONE (19:21)
[2021-09-26] MEDS ORDERED: KETOROLAC 30 MG/1 ML INJ IV ONE (19:21)
[2021-09-26] MEDS ORDERED: POTASSIUM CHLORIDE 10 MEQ 10 MEQ/100 ML BAG IV SCH (20:00)
--- NOTE | 2021-09-26 20:28 | Emergency Department Report ---
ED Abdominal Pain HPI - General Chief Complaint: Nausea/Vomiting/Diarrhea Stated Complaint: NAUSEA/VOMITING/HEADACHE Time Seen by Provider: 09/26/21 16:27 Source: patient Mode of arrival: Ambulatory Limitations: No Limitations - History of Present Illness Initial Comments: 66-year-old black female with a past medical history of hypertension and chronic sinus infections presents to the emergency department for evaluation of 3-day history of persistent nausea vomiting along with abdominal cramping. She denies fever, dysuria, and vaginal discharge. She states that she has not been able to keep anything down since then. MD Complaint: abdominal pain -: Gradual, days(s) (3) Location: diffuse Radiation: none Migration to: no migration Severity: moderate Severity scale (0 -10): 7 Quality: cramping Consistency: intermittent Associated Symptoms: nausea, vomiting, diarrhea. denies: fever, chills, dys uria, hematemesis, hematochezia, melena, hematuria, anorexia, syncope - Related Data Previous Rx's Medication Instructions Recorded Last Taken Type Nitroglycerin (Nf) [Nitrostat] 0.3 mg SL PRN PRN #30 tab 07/08/21 Unknown Rx Aspirin EC [Halfprin EC] 81 mg PO QDAY #30 tablet 07/09/21 Unknown Rx Dicyclomine [Bentyl] 20 mg PO QID PRN #21 tablet 09/26/21 Unknown Rx Ondansetron [Zofran Odt] 4 mg PO Q8HR PRN #12 tab.rapdis 09/26/21 Unknown Rx Potassium Chloride [K-Dur] 10 meq PO QDAY #7 tab 09/26/21 Unknown Rx Allergies Allergy/AdvReac Type Severity Reaction Status Date / Time No Known Allergies Allergy Verified 07/08/21 23:56 ED Review of Systems ROS: Stated complaint: NAUSEA/VOMITING/HEADACHE Other details as noted in HPI Comment: All other systems reviewed and negative Constitutional: denies: chills, fever Respiratory: denies: cough, shortness of breath, SOB with exertion, SOB at rest, stridor, wheezing Cardiovascular: chest pain. denies: palpitations, dyspnea on exertion, orthopnea, edema, syncope, paroxysmal nocturnal dyspnea Gastrointestinal: abdominal pain, nausea, vomiting, diarrhea. denies: hematemesis, melena, hematochezia Genitourinary: denies: urgency, dysuria, frequency, hematuria, discharge, dyspareunia Musculoskeletal: denies: back pain Neurological: denies: headache, weakness ED Past Medical Hx - Past Medical History Hx Hypertension: Yes Additional medical history: Vitamin D deficiency. Hypokalemia. Frequent Sinus Infections - Social History Smoking Status: Never Smoker Substance Use Type: None - Medications Home Medications: Home Medications Medication Instructions Recorded Confirmed Last Taken Type Nitroglycerin (Nf) [Nitrostat] 0.3 mg SL PRN PRN #30 tab 07/08/21 Unknown Rx Aspirin EC [Halfprin EC] 81 mg PO QDAY #30 tablet 07/09/21 Unknown Rx Dicyclomine [Bentyl] 20 mg PO QID PRN #21 tablet 09/26/21 Unknown Rx Ondansetron [Zofran Odt] 4 mg PO Q8HR PRN #12 tab.rapdis 09/26/21 Unknown Rx Potassium Chloride [K-Dur] 10 meq PO QDAY #7 tab 09/26/21 Unknown Rx ED Physical Exam - General Limitations: No Limitations General appearance: alert, in no apparent distress - Head Head exam: Present: atraumatic, normocephalic - Eye Eye exam: Present: normal appearance. Absent: conjunctival injection - Neck Neck exam: Present: normal inspection. Absent: tenderness, full ROM, lymphadenopathy - Respiratory Respiratory exam: Present: normal lung sounds bilaterally. Absent: respiratory distress, wheezes, rales, rhonchi, stridor, chest wall tenderness - Cardiovascular Cardiovascular Exam: Present: regular rate, normal rhythm - GI/Abdominal GI/Abdominal exam: Present: soft, tenderness (generalized), normal bowel sounds. Absent: distended, guarding, rebound, rigid - Extremities Exam Extremities exam: Present: normal inspection, full ROM, normal capillary refill. Absent: tenderness, pedal edema, joint swelling, calf tenderness - Back Exam Back exam: Present: normal inspection, full ROM. Absent: tenderness, CVA tenderness (R), CVA tenderness (L), paraspinal tenderness, vertebral tenderness - Neurological Exam Neurological exam: Present: alert, oriented X3, normal gait - Psychiatric Psychiatric exam: Present: normal affect, normal mood - Skin Skin exam: Present: warm, dry, intact, normal color ED Course Vital Signs 09/26/21 09/26/21 16:21 21:27 Temperature 98.8 F Pulse Rate 81 84 Respiratory 20 14 Rate Blood Pressure 137/56 Blood Pressure 142/61 [Right] O2 Sat by Pulse 100 100 Oximetry - Reevaluation(s) Reevaluation #1: 09/26/21 20:25 Nausea, vomiting, and abdominal cramping resolved. Patient states that she feels much better. After further investigation, patient stated that she has had a recurrent problem with hypokalemia for which her primary care provider started her on daily potassium. She states that her insurance recently went to a different provider of home medications, and her potassium prescription did not get renewed, so she has not taken her prescribed potassium in several weeks. ED Medical Decision Making - Lab Data Result diagrams: 09/26/21 16:39 09/26/21 16:39 - EKG Data When compared to previous EKG there are: no significant change Interpretation: no acute changes - Medical Decision Making 66-year-old black female with a past medical history of hypertension and chronic sinus infections presents to the emergency department for evaluation of 3-day history of persistent nausea vomiting along with abdominal cramping. She denies fever, dysuria, and vaginal discharge. She states that she has not been able to keep anything down since then. No acute abnormalities noted on exam. Patient noted to have critically low K level with normal magnesium. K was replaced with 20meq IV and 40 meq PO. EKG without any acute abnormalities and no change from previous EKG in June, troponin wnl and patient denies chest pain. Of note, patient had a negative MPI on June that did now show any ischemia. Symptoms were resolved after zofran and bentyl. Patient will be discharged home with 7 day coarse of KCL 10 meq daily and zofran and bentyl to use as needed. He is advised to take medications as prescribed and follow up with pcp in 10/04 as previously planned. She is advised to return to ed as needed. She verbalized understanding of and agreement with plan of care. Critical care attestation.: If time is entered above; I have spent that time in minutes in the direct care of this critically ill patient, excluding procedure time. ED Disposition Clinical Impression: Gastroenteritis, Hypokalemia Disposition: HOME / SELF CARE / HOMELESS Is pt being admited?: No Does the pt Need Aspirin: No Condition: Stable Instructions: Viral Gastroenteritis, Adult, [id number], Food Choices to Help Relieve Diarrhea, Adult, Nausea and Vomiting, Adult, [id number], Potassium Content of Foods Additional Instructions: Take medications as prescribed. Follow-up with primary care provider for further evaluation and management. Return to the emergency department as needed. Prescriptions: Dicyclomine [Bentyl] 20 mg PO QID PRN #21 tablet PRN Reason: Pain, Moderate (4-6) Potassium Chloride [K-Dur] 10 meq PO QDAY #7 tab Ondansetron [Zofran Odt] 4 mg PO Q8HR PRN #12 tab.rapdis PRN Reason: Nausea And Vomiting Referrals: KOTA MARIN MD [Staff Physician] - 3-5 Days Forms: Work/School Release Form(ED) Time of Disposition: 20:31
[2021-09-26 21:31] VITALS: BP 142/61
--- NOTE | 2021-09-27 10:49 | Electrocardiograph Report ---
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
== END 2021-09-26 21:48 | disposition home or self-care (01) ==
LOC: ED 13:48
DX: K52.9 Noninfective gastroenteritis and colitis, unspecified (principal); E87.6 Hypokalemia; I10 Essential (primary) hypertension
CPT/HCPCS: 36415; 80053; 81001; 83690; 83735; 84484; 85027; 93005; 96365; 96372; 96375; 99283; J0500; J1885; J2270; J2405; J3480; 96361; 96374; J3490; Q0162

== ENCOUNTER 2022-01-25 15:48 | Emergency (ER) | payer OTHER, MEDICARE ==
[2022-01-25 16:43] VITALS: BP 167/87
--- NOTE | 2022-01-25 17:07 | XRay Report ---
CHEST 2 VIEWS INDICATION / CLINICAL INFORMATION: chest pain. COMPARISON: 07/08/21 FINDINGS: SUPPORT DEVICES: None. HEART / MEDIASTINUM: No significant abnormality. LUNGS / PLEURA: No significant pulmonary or pleural abnormality. No pneumothorax. ADDITIONAL FINDINGS: No significant additional findings. IMPRESSION: 1. No acute findings. No change. Signer Name: Kate Jones MD Signed: 01/25/2022 5:03 PM Workstation Name: [id number]
[2022-01-25 18:11] LABS: Basophils % (Auto) 0.2 % (0.0-1.8); Eosinophils # (Auto) 0.1 K/mm3 (0.0-0.4); Eosinophils % (Auto) 2.5 % (0.0-4.3); Hematocrit 39.3 % (30.3-42.9); Hemoglobin 13.6 gm/dl (10.1-14.3); Lymphocytes # (Auto) 2.1 K/mm3 (1.2-5.4); Lymphocytes % (Auto) 46.2 % (13.4-35.0); Mean Corpuscular HGB Conc 35 % (30-34); Mean Corpuscular Volume 81 fl (79-97); Monocytes # (Auto) 0.5 K/mm3 (0.0-0.8); Monocytes % (Auto) 10.9 % (0.0-7.3); Platelet Count 337 K/mm3 (140-440); Red Blood Count 4.85 M/mm3 (3.65-5.03); Red Cell Distribution Width 13.4 % (13.2-15.2)
[2022-01-25 18:31] LABS: Alanine Aminotransferase 15 units/L (7-56); Albumin 4.4 g/dL (3.9-5); BUN/Creatinine Ratio 13; Blood Urea Nitrogen 12 mg/dL (7-17); Calcium 9.6 mg/dL (8.4-10.2); Hemolysis Index 6
--- NOTE | 2022-01-28 16:42 | Electrocardiograph Report ---
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
== END 2022-01-26 01:30 | disposition left against medical advice (07) ==
LOC: ED 15:48
DX: R07.9 Chest pain, unspecified (principal); Z53.21 Procedure and treatment not carried out due to patient leaving prior to being seen by health care provider
CPT/HCPCS: 36415; 71046; 80053; 84484; 85025; 93005

== ENCOUNTER 2022-01-26 10:26 | Emergency (ER) | payer OTHER, MEDICARE ==
--- NOTE | 2022-01-26 13:01 | Emergency Department Report ---
ED Chest Pain HPI - General Chief Complaint: Chest Pain Stated Complaint: LEFT SIDE PAIN UNDER BREAST Time Seen by Provider: 01/26/22 11:21 Source: patient Mode of arrival: Ambulatory Limitations: No Limitations - History of Present Illness Initial Comments: 66 yo F who present with pain and discomfort under her left breast that is been going on for the last 2 weeks progressively getting worse. Pt denies any SOB or palpitation. No perspiration reported. No cough or fever or chills reported. She says she has history of chicken pus as a child. No other modifying or associated factors reported. - Related Data Previous Rx's Medication Instructions Recorded Last Taken Type Nitroglycerin (Nf) [Nitrostat] 0.3 mg SL PRN PRN #30 tab 07/08/21 Unknown Rx Aspirin EC [Halfprin EC] 81 mg PO QDAY #30 tablet 07/09/21 Unknown Rx Dicyclomine [Bentyl] 20 mg PO QID PRN #21 tablet 09/26/21 Unknown Rx Ondansetron [Zofran Odt] 4 mg PO Q8HR PRN #12 tab.rapdis 09/26/21 Unknown Rx Potassium Chloride [K-Dur] 10 meq PO QDAY #7 tab 09/26/21 Unknown Rx Lidocaine [Lidocaine CREAM] 15 gm TP BID 5 Days #1 cream NS 01/26/22 Unknown Rx Valacyclovir HCl [Valacyclovir] 1,000 mg PO TID 7 Days #21 tab NS 01/26/22 Unknown Rx Allergies Allergy/AdvReac Type Severity Reaction Status Date / Time No Known Allergies Allergy Verified 01/26/22 10:36 Heart Score - HEART Score History: Slightly suspicious EKG: Normal Age: > 65 Risk factors: No known risk factors Troponin: < normal limit HEART Score: 2 - EKG Read Time Time EKG Completed: 10:53 EKG Read Time: 11:00 - Critical Actions Critical Actions: 0-3 pts:0.9-1.7%risk of adverse cardiac event.Candidate for discharge ED Review of Systems ROS: Stated complaint: LEFT SIDE PAIN UNDER BREAST Other details as noted in HPI Comment: All other systems reviewed and negative Cardiovascular: chest pain (wall under the left breast) ED Past Medical Hx - Past Medical History Hx Hypertension: Yes Additional medical history: Vitamin D deficiency. Hypokalemia. Frequent Sinus Infections - Social History Smoking Status: Never Smoker Substance Use Type: None - Medications Home Medications: Home Medications Medication Instructions Recorded Confirmed Last Taken Type Nitroglycerin (Nf) [Nitrostat] 0.3 mg SL PRN PRN #30 tab 07/08/21 Unknown Rx Aspirin EC [Halfprin EC] 81 mg PO QDAY #30 tablet 07/09/21 Unknown Rx Dicyclomine [Bentyl] 20 mg PO QID PRN #21 tablet 09/26/21 Unknown Rx Ondansetron [Zofran Odt] 4 mg PO Q8HR PRN #12 tab.rapdis 09/26/21 Unknown Rx Potassium Chloride [K-Dur] 10 meq PO QDAY #7 tab 09/26/21 Unknown Rx Lidocaine [Lidocaine CREAM] 15 gm TP BID 5 Days #1 cream NS 01/26/22 Unknown Rx Valacyclovir HCl [Valacyclovir] 1,000 mg PO TID 7 Days #21 tab NS 01/26/22 Unknown Rx ED Physical Exam - General Limitations: No Limitations General appearance: alert, in no apparent distress - Head Head exam: Present: atraumatic, normal inspection - Eye Eye exam: Present: normal appearance Pupils: Present: normal accommodation - ENT ENT exam: Present: normal exam, normal orophraynx, mucous membranes moist - Neck Neck exam: Present: normal inspection, full ROM. Absent: tenderness - Respiratory Respiratory exam: Present: normal lung sounds bilaterally, chest wall tenderness (left under the breast with noted ruptured vesicular rash with initial burning and stabbing discomfort--). Absent: respiratory distress, accessory muscle use ED Course Vital Signs 01/26/22 01/26/22 10:42 12:50 Temperature 98.0 F 97.1 F L Pulse Rate 71 86 Respiratory 18 16 Rate Blood Pressure 111/63 Blood Pressure 133/86 [Left] O2 Sat by Pulse 99 100 Oximetry KATHIE score - Kathie Score Age > 65: (1) Yes Aspirin use within the Past 7 Days: (0) No 3 or more CAD Risk Factors: (0) No 2 or more Angina events in past 24 hrs: (0) No Known CAD with more than 50% Stenosis: (0) No Elevated Cardiac Markers: (0) No ST Deviation Greater than 0.5mm: (0) No KATHIE Score: 1 ED Medical Decision Making - EKG Data -: EKG Interpreted by Me EKG shows normal: sinus rhythm Rate: normal - EKG Data 01/26/22 13:04 Noted with normal sinus rhythm at a rate of 60 bpm, with no ST elevation or depression in this normal ECG. - Medical Decision Making here with chest discomfort under her left breast and noted with left under the breast with noted ruptured vesicular rash with initial burning and stabbing discomfort-this consistent with shingles so will go ahead and start antiviral medication and topical lidocaine for comfort. Critical care attestation.: If time is entered above; I have spent that time in minutes in the direct care of this critically ill patient, excluding procedure time. ED Disposition Clinical Impression: Shingles (herpes zoster) polyneuropathy, Non-cardiac chest pain Disposition: HOME / SELF CARE / HOMELESS Is pt being admited?: No Does the pt Need Aspirin: No Condition: Stable Instructions: Neuropathic Pain, Nonspecific Chest Pain, Adult, Coie-ce-Oigl Additional Instructions: Take your antiviral medication as prescribed to continue to help your symptoms Please call and schedule follow-up with your primary doctor in the next 3 to 5 days for progress Please do not hesitate to call or return to emergency if your symptoms worsen Prescriptions: Lidocaine [Lidocaine CREAM] 15 gm TP BID 5 Days #1 cream NS Valacyclovir HCl [Valacyclovir] 1,000 mg PO TID 7 Days #21 tab NS Referrals: PRIMARY CARE, [Referring] - 3-5 Days Time of Disposition: 13:10
[2022-01-26 13:23] VITALS: BP 133/86
--- NOTE | 2022-01-28 16:49 | Electrocardiograph Report ---
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
== END 2022-01-26 18:01 | disposition home or self-care (01) ==
LOC: ED 10:26
DX: B02.23 Postherpetic polyneuropathy (principal); R07.89 Other chest pain; I10 Essential (primary) hypertension; N64.4 Mastodynia; Z79.899 Other long term (current) drug therapy
CPT/HCPCS: 93005; 99282